=== PATIENT | male | born 1965 | race African-American/Black ===

== ENCOUNTER 2017-09-03 08:09 | Emergency (ER) | payer OTHER ==
[~2017-09-03] VITALS: Ht 185.4 cm; Wt 129.0 kg
[2017-09-03 08:15] VITALS: TEMP 36.5; Ht 185.4 cm; Wt 129.0 kg
[2017-09-03] MEDS ORDERED: CPR/500 PO (08:20)
[2017-09-03] MEDS ORDERED: IBUP-1428 PO (08:20)
[2017-09-03] MEDS ORDERED: HYDR-5688 PO (08:20)
[2017-09-03] MEDS ORDERED: LEVO-519 PO (08:22)
[2017-09-03] MEDS ORDERED: CHOL1000 PO (08:34)
[2017-09-03] MEDS ORDERED: ASPI81TA28 PO (08:34)
[2017-09-03] MEDS ORDERED: AMLODIPINE PO (08:34)
[2017-09-03] MEDS ORDERED: LOSARTAN PO (08:34)
[2017-09-03] MEDS ORDERED: SIMVASTATIN PO (08:34)
--- NOTE | 2017-09-03 08:38 | EMERGENCY ROOM VISIT NOTE ---
History First contact with patient: 08:18 Chief Complaint: FLANK PAIN Stated Complaint: R-FLANK PAIN History of Present Illness The patient is a 58 year old male who presents to the Emergency Room with complaints of right sided flank pain. He reports this started a few days ago, and he was seen in [place] (where is he from). He is visiting [place] for a softball tournament. He reports he was also diagnosed with a UTI yesterday and started on Cipro. He had an Xray which showed a kidney stone, and was given pain medications and sent home. He reports this morning the pain was worse. He was curled up in a ball so the ambulance was called. He was given 6mg Morphine IV, 4mg Zofran IV, and 400mL NSS IV. Currently he feels somewhat better from a pain standpoint. He has had kidney stones in the past. He reports they are usually the calcium type. He does not drink much water. He has not had a fever at any point. Review of Systems See HPI for pertinent positives & negatives. A total of 10 systems reviewed and were otherwise negative. Past Medical/Surgical History PMHx Hypothyroidism Kidney stones PSHx None Family History No FHx of Diabetes, HTN, or kidney stones. Social History Smoking Status: Unknown if Ever Smoked Alcohol Use: occasionally Drug Use: none Marital Status: Housing Status: lives with family Occupation Status: employed Current/Historical Medications Scheduled Aspirin (Aspirin Ec), 81 MG PO DAILY Cholecalciferol (Vitamin D3), 1,000 INTER.UNIT PO DAILY Ciprofloxacin (Ciprofloxacin HCl), 500 MG PO BID Levothyroxine Sodium (Synthroid), 137 MCG PO QAM Tamsulosin Hcl (Flomax), 0.4 MG PO DAILY [Amlodipine], 1 TAB PO DAILY [Losartan], 1 TAB PO DAILY [Simvastatin], 1 TAB PO QPM Scheduled PRN Hydrocodone/Acetaminophen 5MG/325MG (Joiner 5MG/325MG), 1 TABLET PO Q6 PRN for Pain Ibuprofen (Motrin), 800 MG PO TID PRN for Pain Allergies NKDA Physical Exam Vital Signs Date Time Temp Pulse Resp B/P (MAP) Pulse Ox O2 Delivery O2 Flow Rate FiO2 09/03/17 11:30 62 20 145/89 93 09/03/17 10:02 63 18 139/90 95 Room Air 09/03/17 08:15 36.5 66 20 141/71 98 Room Air Physical Exam GENERAL: Awake, alert, well-appearing, in no acute distress HENT: Normocephalic, atraumatic. Oropharynx unremarkable. EYES: Normal conjunctiva. Sclera non-icteric. NECK: Supple. No nuchal rigidity. FROM. No JVD. RESPIRATORY: Clear to auscultation. CARDIAC: Regular rate, normal rhythm. Extremities warm and well perfused. Pulses equal. ABDOMEN: Soft, non-distended. Mild R CVA tenderness. No rebound or guarding. No masses. RECTAL: Deferred. MUSCULOSKELETAL: Chest examination reveals no tenderness. The back is symmetrical on inspection without obvious abnormality. No joint edema. LOWER EXTREMITIES: Calves are equal size bilaterally and non-tender. No edema. No discoloration. NEURO: Normal sensorium. No sensory or motor deficits noted. SKIN: No rash or jaundice noted. Medical Decision & Procedures Laboratory Results 09/03/17 08:30 Red Blood Count 4.74, Mean Corpuscular Volume 85.9, Mean Corpuscular Hemoglobin 27.4, Mean Corpuscular Hemoglobin Concent 31.9, Mean Platelet Volume 11.3, Neutrophils (%) (Auto) 66.4, Lymphocytes (%) (Auto) 21.3, Monocytes (%) (Auto) 9.9, Eosinophils (%) (Auto) 2.0, Basophils (%) (Auto) 0.2, Neutrophils # (Auto) 3.03, Lymphocytes # (Auto) 0.97, Monocytes # (Auto) 0.45, Eosinophils # (Auto) 0.09, Basophils # (Auto) 0.01 09/03/17 08:30 Test 09/03/17 08:30 09/03/17 10:00 White Blood Count 4.56 K/uL (4.8-10.8) Red Blood Count 4.74 M/uL (4.7-6.1) Hemoglobin 13.0 g/dL (14.0-18.0) Hematocrit 40.7 % (42-52) Mean Corpuscular Volume 85.9 fL (80-100) Mean Corpuscular Hemoglobin 27.4 pg (25-34) Mean Corpuscular Hemoglobin Concent 31.9 g/dl (32-36) Platelet Count 202 K/uL (130-400) Mean Platelet Volume 11.3 fL (7.4-10.4) Neutrophils (%) (Auto) 66.4 % Lymphocytes (%) (Auto) 21.3 % Monocytes (%) (Auto) 9.9 % Eosinophils (%) (Auto) 2.0 % Basophils (%) (Auto) 0.2 % Neutrophils # (Auto) 3.03 K/uL (1.4-6.5) Lymphocytes # (Auto) 0.97 K/uL (1.2-3.4) Monocytes # (Auto) 0.45 K/uL (0.11-0.59) Eosinophils # (Auto) 0.09 K/uL (0-0.5) Basophils # (Auto) 0.01 K/uL (0-0.2) RDW Standard Deviation 48.4 fL (36.4-46.3) RDW Coefficient of Variation 15.4 % (11.5-14.5) Immature Granulocyte % (Auto) 0.2 % Immature Granulocyte # (Auto) 0.01 K/uL (0.00-0.02) Anion Gap 9.0 mmol/L (3-11) Est Creatinine Clear Calc Drug Dose 74.4 ml/min Estimated GFR () 54.1 Estimated GFR (Non- 46.7 BUN/Creatinine Ratio 13.3 (10-20) Calcium Level 8.2 mg/dl (8.5-10.1) Urine Color YELLOW Urine Appearance CLOUDY (CLEAR) Urine pH 5.0 (4.5-7.5) Urine Specific Ruffin 1.022 (1.000-1.030) Urine Protein TRACE (NEG) Urine Glucose (UA) NEG (NEG) Urine Ketones NEG (NEG) Urine Occult Blood 3+ (NEG) Urine Nitrite NEG (NEG) Urine Bilirubin NEG (NEG) Urine Urobilinogen NEG (NEG) Urine Leukocyte Esterase NEG (NEG) Urine WBC (Auto) 1-5 /hpf (0-5) Urine RBC (Auto) >30 /hpf (0-4) Urine Hyaline Casts (Auto) 1-5 /lpf (0-5) Urine Epithelial Cells (Auto) 10-20 /lpf (0-5) Urine Bacteria (Auto) NEG (NEG) Medications Administered Medications (Trade) Dose Ordered Sig/Dwayne Route Start Time Stop Time Status Last Admin Dose Admin Morphine Sulfate (MoRPHine SULFATE INJ) 2 mg NOW STAT IV 10/28/17 09:00 09/03/17 09:04 DC 09/03/17 09:16 2 MG Morphine Sulfate (MoRPHine SULFATE INJ) 6 mg Q1H PRN IV 09/03/17 09:45 09/03/17 11:40 DC 09/03/17 10:20 6 MG ED Course 8:25AM: I evaluated the patient in room B10. 8:30AM: I ordered a CBC, PRP. The pt was not in pain currently so I did not provide pain medications. I discussed finishing the IV fluids which were started in the ambulance and providing PO fluids if able to for the patient. 8:40AM: I discussed the case with Dr Esparza, Attending physician. I also ordered a CT scan to evaluate the stone. 9:30AM: The pt developed more pain, so Morphine was ordered. We also ordered a urinalysis. 9:50AM: I checked on the patient again. He reported he was feeling somewhat better. I informed him of the CT scan results. 10:42AM: His labwork had all returned and was normal. He was afebrile while he was here. 11:00AM: He was discharged home in good condition. Medical Decision 51 yo M with flank pain. DDx includes kidney stone, UTI, hernia, musculoskeletal , or dehydration. He had an IV placed and labs drawn. He was afebrile throughout his time here. His urinalysis was normal. His pain was controlled with IV morphine. He had a CT scan demonstrating a 3mm stone in the distal right ureter. He reported he was diagnosed with a UTI and was on Cipro for two doses worth. He reports he did not actually take it today. There were no signs on infection while he was here. He was advised of his CT results, informed it can take up to 2 weeks to pass a stone 3mm large. He was discharged home in good condition. He was provided with Flomax as a prescription. He already had Ibuprofen 800mg and Joiner which he had filled yesterday. Impression Primary Impression: Kidney stone on right side Departure Information Dispostion Home / Self-Care Condition GOOD Prescriptions Tamsulosin Hcl (FLOMAX) 0.4 Mg Cap 0.4 MG PO DAILY for 10 Days, #10 CAP Prov: Emily Figueredo MD 09/03/17 Referrals No Doctor, Assigned (PCP) Patient Instructions [facility]
[2017-09-03 08:57] LABS: BASO % 0.2 %; BASO ABS # 0.01 K/uL (0-0.2); COMPLETE YES; HEMATOCRIT 40.7 % (42-52); IG% 0.2 %; LYMPH % 21.3 %; LYMPH ABS # 0.97 K/uL (1.2-3.4); MEAN CELL VOLUME 85.9 fL (80-100); MEAN CORPUSCULAR HEMOGLOBIN 27.4 pg (25-34); MEAN CORPUSCULAR HGB CONC 31.9 g/dl (32-36); MEAN PLATELET VOLUME 11.3 fL (7.4-10.4); MONO % 9.9 %; NEUT % 66.4 %; PLATELET COUNT 202 K/uL (130-400); RED BLOOD COUNT 4.74 M/uL (4.7-6.1); WHITE BLOOD COUNT 4.56 K/uL (4.8-10.8)
[2017-09-03] MEDS ORDERED: KETOROLAC TROMETHAMINE 30 MG/ML VIAL IV STA (09:00)
[2017-09-03] MEDS ORDERED: MoRPHine SULFATE 2 MG/ML CARP IV STA (09:00)
[2017-09-03 09:16] LABS: BUN/CREATININE RATIO 13.3 (10-20); CALCIUM 8.2 mg/dl (8.5-10.1); CREATININE 1.69 mg/dl (0.60-1.40); POTASSIUM 3.9 mmol/L (3.5-5.1)
--- NOTE | 2017-09-03 09:33 | DIAGNOSTIC IMAGING REPORT ---
ABD/PELVIS WITHOUT FOR STONE CT DOSE: 1744.95 mGy.cm HISTORY: Pain stone w/UTI? TECHNIQUE: Multiaxial CT images of the abdomen and pelvis were performed without the use of intravenous and oral contrast according to the standard department stone protocol. A dose lowering technique was utilized adhering to the principles of ALARA. COMPARISON STUDY: None. FINDINGS: Minimal bibasilar interstitial lung change. Liver spleen and pancreas appear unremarkable. Mild right renal hydronephrosis. 3.5 cm right renal cyst. Left kidney is unremarkable. Mild fullness of the right renal collecting system and right ureter. This extends to the distal ureter where a 3 mm calculus is identified within the distal right ureter. This is approximately 10 cm from the right ureterovesical junction. Bladder is midline. Bowel pattern is nonobstructive. There are findings of chronic colonic diverticulosis. The appendix is normal. IMPRESSION: 3 mm obstructing calculus distal right ureter. 2. Mild right hydroureteronephrosis. 3. Chronic colonic diverticulosis with no evidence for acute diverticulitis. The above report was generated using voice recognition software. It may contain grammatical, syntax or spelling errors. Electronically signed by: Nato Clark M.D. 09/03/2017 9:31 AM Dictated Date/Time: 09/03/2017 9:29 AM
[2017-09-03] MEDS ORDERED: MoRPHine SULFATE 10 MG/ML CARP/VIAL IV PRN (09:45)
--- NOTE | 2017-09-03 09:51 | EMERGENCY ROOM VISIT NOTE ---
ED Visit Note First contact with patient: 08:18 Resident Physician Supervision Note: I interviewed and examined the patient. Discussed with and agree with findings and plan as documented in the note. Any exceptions or clarifications are listed here: [None] Documented By: Spencer Esparza
[2017-09-03 10:30] LABS: MANUAL MICROSCOPIC REQUIRED? NO; REVIEW REQ? NO; URINE APPEARANCE CLOUDY (CLEAR); URINE BILIRUBIN NEG (NEG); URINE COLOR YELLOW; URINE NITRITE NEG (NEG); URINE SPECIFIC GRAVITY 1.022 (1.000-1.030); UROBILINOGEN NEG (NEG); ZZUR CULT IF INDIC CLEAN CATCH NO
[2017-09-03] MEDS ORDERED: TAMS0.4C38 PO (10:54)
[2017-09-03 11:30] VITALS: BP 145/89; PULSE 62; O2SAT 93
== END 2017-09-03 11:30 | disposition home or self-care (01) ==
LOC: EDBD 08:11 → C.EDB 08:11
DX: N20.1 Calculus of ureter (principal); N39.0 Urinary tract infection, site not specified; E03.9 Hypothyroidism, unspecified; Z79.82 Long term (current) use of aspirin